=== PATIENT | female | born 1990 | race Caucasian/White ===

== ENCOUNTER 2025-05-23 23:11 | Emergency (ER) | payer BC, SELFPAY ==
[2025-05-23] MEDS ORDERED: HYDROcodone/Acetaminophen 5/325 mg Tablet ONE (23:32)
[2025-05-23] MEDS ORDERED: Amoxicillin/Potassium Clav 875 MG TAB ONE (23:41)
[2025-05-24] MEDS ORDERED: Lidocaine 1% (PF) 30 ML VIAL ONE (00:04)
== END 2025-05-24 01:25 | disposition home or self-care (01) ==
LOC: ERS 23:11 → EDBD 23:11 → ERS 05-24 01:25
DX: S01.451A Open bite of right cheek and temporomandibular area, initial encounter (principal); S01.85XA Open bite of other part of head, initial encounter; W54.0XXA Bitten by dog, initial encounter
CPT/HCPCS: 12016; 99283; J2003